=== PATIENT | female | born 1965 | race Caucasian/White ===

== ENCOUNTER 2020-04-27 12:21 | Outpatient (REF) | payer OTHER, SELFPAY | END 2020-04-27 12:22 | disposition home or self-care (01) | LOC: HO.LAB 12:21 | PROVIDERS: Visit Provider Hospitalist | DX: Z20.828 Contact with and (suspected) exposure to other viral communicable diseases (principal) | CPT/HCPCS: U0003 ==

== ENCOUNTER 2021-08-26 08:08 | Outpatient (REF) | payer OTHER, SELFPAY ==
--- NOTE | ~2021-08-26 | MM_ITS ---
EXAMINATION: MM SCREENING DIGITAL BREAST TOMOSYNTHESIS, BILATERAL CLINICAL INFORMATION: Screening. Asymptomatic. The lifetime risk of breast cancer based on the Tyrer-Cuzick Model is 12.3%. COMPARISON: Mammography: January 28, 2018 and studies dating back to February 10, 2014 TECHNIQUE: Digital breast tomosynthesis is performed in both the craniocaudal and mediolateral oblique views along with computer-aided detection (CAD). Synthesized 2D images are generated from the tomosynthesis. FINDINGS: The breasts are almost entirely fatty (ACR BI-RADS breast composition Category a). There are no significant masses, abnormal calcifications, or other abnormalities. Calcifications are again seen within the axillary lymph nodes consistent with pigmented from tattoos. MM/MM tomosynthesis screening BI IMPRESSION: There are no significant changes from prior study. ASSESSMENT: BI-RADS 2: Benign RECOMMENDATION: Routine annual mammography screening. This patient's information was entered into a reminder system with a target due date for their next mammogram.
== END 2021-08-26 08:09 | disposition home or self-care (01) ==
LOC: HO.MAMMO 08:08
PROVIDERS: Visit Provider Pediatrics
DX: Z12.31 Encounter for screening mammogram for malignant neoplasm of breast (principal)
CPT/HCPCS: 77063; 77067

== ENCOUNTER 2022-04-25 16:51 | Outpatient (REF) | payer OTHER, SELFPAY ==
[2022-04-26 13:00] LABS: Influenza A PCR NEGATIVE (Negative); Influenza B PCR NEGATIVE (Negative); Resp Syncy Virus RNA Qual PCR NEGATIVE (Negative); SARS COV2 PCR INHOUSE NEGATIVE (Negative)
== END 2022-04-25 16:52 | disposition home or self-care (01) ==
LOC: HO.LAB 16:51
PROVIDERS: Visit Provider Nurse Practitioner Family
DX: Z20.822 Contact with and (suspected) exposure to COVID-19 (principal)
CPT/HCPCS: 0241U

== ENCOUNTER → 2023-02-17 08:15 | Outpatient (BNV) | payer OTHER, SELFPAY | PROVIDERS: PCP Internal Medicine; Visit Provider Radiology Diagnostic Radiology | DX: Z12.31 Encounter for screening mammogram for malignant neoplasm of breast (principal) | CPT/HCPCS: 77063; 77067 ==

== ENCOUNTER 2023-02-17 08:18 | Outpatient (REF) | payer OTHER, SELFPAY ==
--- NOTE | ~2023-02-17 | MM_ITS ---
EXAMINATION: MM SCREENING DIGITAL BREAST TOMOSYNTHESIS, BILATERAL CLINICAL INFORMATION: Screening. Asymptomatic. COMPARISON: Mammography: This study is compared with prior exams dating back to 2016. TECHNIQUE: Digital breast tomosynthesis is performed in both the craniocaudal and mediolateral oblique views along with computer-aided detection (CAD). Synthesized 2D images are generated from the tomosynthesis. FINDINGS: There are scattered areas of fibroglandular density (ACR BI-RADS breast composition Category b). There are no significant masses, abnormal calcifications, or other abnormalities. MM/MM tomosynthesis screening BI IMPRESSION: No mammographic evidence of malignancy. ASSESSMENT: BI-RADS BI-RADS 1 - Negative RECOMMENDATION: Routine annual mammography screening. 1 year F/U This examination should not preclude the clinical evaluation of a suspicious palpable abnormality. This patient's information was entered into a reminder system with a target due date for their next mammogram.
== END 2023-02-17 08:19 | disposition home or self-care (01) ==
LOC: HO.MAMMO 08:18
PROVIDERS: PCP Internal Medicine; Visit Provider Internal Medicine
DX: Z12.31 Encounter for screening mammogram for malignant neoplasm of breast (principal)
CPT/HCPCS: 77063; 77067

== ENCOUNTER 2024-02-23 08:11 | Outpatient (REF) | payer OTHER, SELFPAY ==
--- NOTE | ~2024-02-23 | MM_ITS ---
EXAMINATION: MM SCREENING DIGITAL BREAST TOMOSYNTHESIS, BILATERAL CLINICAL INFORMATION: Screening. Asymptomatic. COMPARISON: Mammography: Comparison is made with available priors TECHNIQUE: Digital breast mammography with tomosynthesis is performed in both the craniocaudal and mediolateral oblique views along with computer-aided detection (CAD). FINDINGS: There are scattered areas of fibroglandular density (ACR BI-RADS breast composition Category b). There are no significant masses, abnormal calcifications, or other abnormalities. MM/MM tomosynthesis screening BI IMPRESSION: No mammographic evidence of malignancy. ASSESSMENT: BI-RADS BI-RADS 1 - Negative RECOMMENDATION: Routine annual mammography screening. 1 year F/U This examination should not preclude the clinical evaluation of a suspicious palpable abnormality. This patient's information was entered into a reminder system with a target due date for their next mammogram. Electronically signed by: Skye Lund DO 03/07/2024 08:55 AM EDT
== END 2024-02-23 08:12 | disposition home or self-care (01) ==
LOC: HO.MAMMO 08:11
PROVIDERS: PCP Internal Medicine; Visit Provider Internal Medicine
DX: Z12.31 Encounter for screening mammogram for malignant neoplasm of breast (principal)
CPT/HCPCS: 77063; 77067

== ENCOUNTER → 2024-02-23 08:15 | Outpatient (BNV) | payer OTHER, SELFPAY | PROVIDERS: PCP Internal Medicine; Visit Provider Internal Medicine | DX: Z12.31 Encounter for screening mammogram for malignant neoplasm of breast (principal) | CPT/HCPCS: 77063; 77067 ==

== ENCOUNTER 2025-03-28 09:55 | Outpatient (REF) | payer OTHER, SELFPAY ==
--- NOTE | ~2025-03-28 | MM_ITS ---
EXAMINATION: MM SCREENING DIGITAL BREAST TOMOSYNTHESIS, BILATERAL CLINICAL INFORMATION: Screening. Asymptomatic. COMPARISON: Comparison made to multiple prior, most recent February 23, 2024, and most remote February 10, 2014. TECHNIQUE: Digital breast tomosynthesis is performed in mediolateral oblique and craniocaudal views along with computer-aided detection (CAD). Synthesized 2D images are generated from the tomosynthesis. FINDINGS: BREAST COMPOSITION: There are scattered areas of fibroglandular density. BILATERAL BREASTS: No significant masses, suspicious calcifications or other abnormalities are seen in either breast. MM/MM tomosynthesis screening BI IMPRESSION: BILATERAL BREASTS: Negative, no mammographic evidence of malignancy. Normal interval follow-up is recommended in 12 months. ASSESSMENT: BI-RADS: Category 1: Negative RECOMMENDATION: Routine annual mammography screening. FOLLOW-UP: 1 year F/U This examination should not preclude the clinical evaluation of a suspicious palpable abnormality. This patient's information was entered into a reminder system with a target due date for their next mammogram. Electronically signed by: Antionette Silverio MD 03/30/2025 08:15 PM EDT
--- OUTSIDE RECORDS SUMMARY | 2025-03-28 09:58 | XMS_ITS ---
Author Name [facility] Organization Unknown History of Medication Use Medication Directions Dispensed Refills Start Date End Date Stat us benzonatate 100 mg capsule TAKE 1 CAPSULE BY MOUTH 3 TIMES DAILY NEEDED FOR COUGH FOR UP TO 7 DAYS. active diclofenac sodium 50 mg tablet,delayed release TAKE 1 TABLET BY MOUTH TWICE A DAY active fluocinolone acetonide oil 0.01 % ear drops PLACE 2 DROPS IN EAR(S) 2 TIMES DAILY NEEDED (ECZEMA). active fluticasone propionate 50 mcg/actuation nasal spray,suspension SPRAY 1 SPRAY INTO EACH NOSTRIL EVERY DAY active levothyroxine 50 mcg tablet TAKE 1 TABLET BY MOUTH SUNDAY THROUGH SUNDAY AND 1.5 TABLET ON SUNDAY. active meloxicam 7.5 mg tablet TAKE 1 TABLET BY MOUTH EVERY DAY active Allergies Allergen Reaction Severity Comment Documented Date Source Statu s CODEINE ENS_AONECT LATEX, NATURAL RUBBER ENS_AONECT NAPROXEN ENS_AONECT SINGULAIR ENS_AONECT Problems Problem Status Onset Date Problem Type Date of Resoluti on Source Carpal tunnel syndrome of right wrist active 2023-07-25 ProblemAct ENS_AONECT Encounters Encounter Type Encounter Reason Primary Diagnosis Location Date Ambulatory [facility] [place] 07/25/2023 Ambulatory [facility] [place] 06/13/2023 [facility]ulatory [facility] [place] 06/13/2023 [facility]ulatory [facility] [place] 06/13/2023 Ambulatory [facility] [place] 06/01/2023 Ambulatory [facility] [place] 05/24/2023
--- OUTSIDE RECORDS SUMMARY | 2025-03-28 09:58 | XMS_ITS | Data Portability ---
Author Organization [place] [facility] Carmelo EspinosaEpifanioCLAUDY Bonsall Address [address] [facility] [address] [place] [address] Care Team Providers Care Podiatric Physician Name Role Phone DESTINEY MUNGUIA Referring Provider LAUREN HENNING Primary Care Provider DESTINEY MUNGUIA Primary Care Provider Assessment Encounter Date Assessment Date Assessment LastModified by Organization Details LastModified Time 06/13/2023 06/13/2023 The above findin gs were discussed with the patient, carpal tunnel syndrome was discussed. Pathology and expected prognosis were discussed. Treatment options include conservative treatment, splinting, injection, and sometimes surgical carpal tunnel release. We will start with night splinting for a total of 6 weeks. If they is still symptomatic after this trial of night splinting we can discuss further workup with either electrodiagnostic studies or a diagnostic and/or therapeutic cortisone injection. It is important that they wear the splint every night for a total of 6-week even if symptoms improve. All questions were answered today. I will see them back in 6 weeks. No x-rays are needed at the next visit. Not available 06/13/2023 10:23:17 07/25/2023 07/25/2023 She returns to [facility] 6 weeks status post wearing nocturnal brace for her right carpal tunnel syndrome, doing very well with significant improvement. She is happy with her progress. She will continue to wear the brace at night. She will monitor her symptoms, if they become more persistent during the day, she develops more nocturnal symptoms, or develops any weakness in the hand, she will return to see me. I let her know that the neck step would be to do a nerve conduction study. For now she will continue to monitor symptoms, wear the brace and will return to see me as needed. All of her questions were answered, she is in agreement the plan. Not available 07/25/2023 08:50:59 Plan of Treatment Reminders Order Date Submit Date Provider Last Modified By Organization Details Last Modified Time Details Appointments None record ed. Lab None record ed. Referral None record ed. Procedures None record ed. Surgeries None record ed. Imaging XR, wrist, 3 or more view 024 06/13/19 24 lschindela [facility], [address], [facility] [address], [place], [address], 4 12:56:30 Medication Orders None record ed. Patient TargetsNo targets recorded. Patient Instructions Encounter Date Encounter Id Patient Instructions Last Modified By Organization Details Last Modified Time 06/13/2023 [id number] 3 views of the right wrist were ordered and reviewed today, this demonstrates no acute bony abnormality. There is good mineralization of the bones. Not available 06/13/2023 10:23:01 Reason for Referral None Reported. Problems Name Problem SNOMED Code Status Onset Date Resolution Date Notes Provider Name and Address Organization Details Recorded Time Carpal tunnel syndrome of right wrist 592078350250744 Active 2023 Danielle reaves MD [address] [facility] [address], [place], [address] [facility] [place] [facility] 4 08:50:13 Problem Notes None recorded. Medical Equipment None Reported. Allergies Allergen ID Allergen Name Allergen Category Reaction Reaction Severity Criticality Documentation Date Start Date Code Code System Note Provider Name and Address Organization Details Recorded Time 31730 Latex (substanc e) environme nt,medica tion Not available Not available Not available 06/13/2023 99935 8007 SNOMED Maegan Chamberlain null, [place] [facility] 4 08:50:33 67291 Singulair medicatio n Not available Not available Not available 06/13/2023 85574 9 RxNorm Maegan Chamberlain null, [place] [facility], P 4 08:50:48 44885 naproxen medicatio n Not available Not available Not available 06/13/2023 7258 RxNorm Maegan kan, [facility] 08:50:56 63863 codeine medicatio n Not available Not available Not available 06/13/2023 2670 RxNorm Maegan kan, [facility], P 4 08:51:05 Medications Name Sig Start Date Stop Date Status Note LastModified by Organization Details LastModified Time meloxicam 7.5 mg tablet TAKE 1 TABLET BY MOUTH EVERY DAY active Not Available Not Available No t Available benzonatate 100 mg capsule TAKE 1 CAPSULE BY MOUTH 3 TIMES DAILY NEEDED FOR COUGH FOR UP TO 7 DAYS. active Not Available Not Available No t Available levothyroxine 50 mcg tablet TAKE 1 TABLET BY MOUTH SUNDAY THROUGH SUNDAY AND 1.5 TABLET ON SUNDAY. active Not Available Not Available No t Available diclofenac sodium 50 mg tablet,delayed release TAKE 1 TABLET BY MOUTH TWICE A DAY active Not Available Not Available No t Available fluticasone propionate 50 mcg/actuation nasal spray,suspensi on SPRAY 1 SPRAY INTO EACH NOSTRIL EVERY DAY active Not Available Not Available No t Available fluocinolone acetonide oil 0.01 % ear drops PLACE 2 DROPS IN EAR(S) 2 TIMES DAILY NEEDED (ECZEMA). active Not Available Not Available No t Available Vitals Date Recorded Body height Body mass index (BMI) Body weight Provider Name and Address Organization Details Last Updated DateTime 06/13/2023 154.94 cm 30.2 kg/m2 61322.78 g Maegan Chamberlain [facility], P 06/13/2023 08:51:26 Date Recorded Body height Body mass index (BMI) Body weight Provider Name and Address Organization Details Last Updated DateTime 07/25/2023 154.94 cm 30.2 kg/m2 27164.78 brian Chamberlain [facility], P 07/25/2023 08:28:54 Social History None recorded. Functional Status Question Answer Note LastModified by Organizat ion Details LastModified Time How many times per week do you consume alcohol? Less than 1 time per week Information not available 06/13/2023 Do you use any illicit or recreational drugs? No Information not available 06/13/2023 Do you or have you ever used any other forms of tobacco or nicotine? No Information not available 06/13/2023 What is your level of alcohol consumption? Occasional Information not available 06/13/2023 Mental Status None recorded. Family History Relationship Description Onset Age of this Age Resolved Age Notes LastModified by Organization Details LastModified Time Father No current problems or disability Not available 08/2023 08:52:47 Mother No current problems or disability Not available 08/2023 08:52:47 Medical History Condition Response Coronary Artery Disease N Gout N Hyperthyroidism N MRSA N Blood Transfusion N Emphysema N Hypothyroidism N COPD N Depression N Pacemaker N Vascular Disease N Gastrointestinal Disease N Anxiety Disorder N Autoimmune disease N Arthritis N Cancer N Stroke N High Cholesterol N Neurologic Disorder N Liver Disease N Organ Transplant N Arrhythmia N Rheumatoid Arthritis N Fibromyalgia N Kidney Disease N Allergies/Hayfever N Adverse Reaction to Anesthesia N Thyroid Problems N Anemia N Brain Injury N Heart Attack (NM) N Osteopenia N Diabetes N Bleeding Disorder N Seizures/Epilepsy N AIDS/HIV N Congestive Heart Failure (CHF) N Asthma Y Amputation N Reflux/GERD N Sleep Apnea N Hepatitis N Aneurysm N Heart Disease N Pulmonary Embolism N Hypertension N Osteoporosis N Gynecological HistoryNo gynecological history recorded. Obstetrics History GPAL:G 0 P 0 0 0 0 Past Encounters Encounter ID Performer Location Encounter Start Date Encounter Closed Date Diagnosis/Indication Diagnosis SNOMED-CT Code Diagnosis ICD10 Code Diagnosis IMO Codes Diagnosis Note [id number] MD CLAUDY Mulligan [address] [place] [address] 06/13/2023 08:37:30 06/13/2023 09:28:49 Pain of right wrist 8752485668 17769 M25.531 [id number] MD CLAUDY Mulligan [facility] [address] [facility] [address] [place] [address] 07/25/2023 08:12:19 07/25/2023 09:03:11 Carpal tunnel syndrome of right wrist [id number] 50198 G56.01 Health Concerns Section Related Observation LastModified by Organization Detai ls LastModified Time None Recorded Concern Status LastModified by Organization Details LastModified Time None Recorded Advance Directives Directive None Recorded Payers Insurance Date Sequence Insurance Name Policy Number Policy Michel Covered Member ID Michel Member ID Guarantor Name 07/22/2023 1 [facility] (HMO) [id number] Kali Reyes [id number] Palak Reyes 06/13/2023 2 [facility] - MEDICARE ADVANTAGE PLAN (MEDICARE REPLACEMENT HMO) Palak Reyes [id number] Palak Reyes Notes Date Note Type Note Provider Name and Address Organization Details Recorded Time 06/13/2023 text/html ROS as noted in the HPI This is a 57-year-old [id number] female who is presenting with right hand numbness and tingling for the last 2 months. This started acutely she denies any history of trauma or change in activity at that time. She describes numbness and tingling in the thumb, index, middle fingers which is prominent at night and wakes her up at night but also happens during the day. This is intermittent in nature. She denies any weakness. Denies any symptoms in her small finger or her left side. She obtained a splint about 2 weeks ago which she has been wearing at night and she says this is significantly helping her nighttime symptoms. She does note daytime symptoms still occasionally. 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 Danielle Rodgers MD [address], [address], [place] [facility] 06/13/2023 10:23:32 07/25/2023 text/html ROS as noted in the HPI She follows up for her right hand carpal tunnel syndrome. She bought a brace on [employer] which she has been wearing nightly and she said this has helped her symptoms significantly. She denies any nocturnal symptoms anymore. Denies constant symptoms during the day, intermittently she will get some numbness which is very transient and goes away. This does not bother her at all. Denies any numbness or tingling today. No weakness in the hand. Danielle Rodgers MD [address] [facility] [address], [place], [address], [place] [facility] 07/25/2023 09:04:28 OBGyn Episode No OBEpisode recorded.
--- OUTSIDE RECORDS SUMMARY | 2025-03-28 09:58 | XMS_ITS | Clinical Summary ---
Author Organization [facility] [address] [place] [address] [place] [id number] Phone Care Team Providers Care Auditing Specialist Name Role Phone Sofia Vargas MD Primary Care Provider [phone] Allergies Active Allergy Reactions Criticality Noted Date Comments Codeine Nausea And Vomiting 05/26/2009 Latex Itching 03/20/2009 Montelukast Nausea And Vomiting 03/20/2009 Naproxen 03/20/2009 Other Reaction(s): OTHER FELT LIKE BLADDER INFECTION Medications medical marijuana [employer] med 1/2 gummies nightly Active fluocinolone acetonide oiL 0.01 % drops Place 2 Drops in ear(s) 2 times daily as needed (eczema). 2 Active fluticasone propionate (FLONASE) 50 mcg/actuation nasal spray Administer 1 spray into each nostril 1 (one) time each day. Active estradiol-noret hindrone (ACTIVELLA) 1-0.5 mg per tablet Take 1 tablet by mouth 1 (one) time each day. 5 Active folic acid (FOLVITE) 1 mg tablet Take 1 tablet (1,000 mcg total) by mouth 1 (one) time each day. 5 Active methotrexate 2.5 mg tablet Take 6 tablets (15 mg total) by mouth 1 (one) time per week 5 Active levothyroxine (SYNTHROID, LEVOTHROID) 50 mcg tablet TAKE 1 TABLET BY MOUTH SUNDAY THROUGH SUNDAY AND 1&1/2 TABLET ON SUNDAY. 135 tablet 1 5 Active Active Problems Problem Noted Date Diagnosed Date Arthritis 05/05/2024 Overview (05/05/2024): left knee, right hand Lui's thyroiditis 09/08/2021 Assessment & Plan (11/25/2024 9:52 AM EDT): Orders: Thyroid stimulating hormone with reflex to free t4 and free t3; Future Osteoarthritis of left knee 01/27/2020 Overview (05/05/2024): Mild on left Psoriasis 08/22/2017 Psoriatic arthropathy ([facility] V24, [facility] V28) 08/22/2017 Overview (05/05/2024): pauciarticular arthritis, hx of iritis and psoriasis Varicose vein of leg 05/26/2009 Immunizations Immunization Administration Dates Next Due DTP 12/03/1967, 8,03/18/1967,1966 Influenza Quadravalent, MDCK , 0.5ml, preservative free (Flucelvax) 6mo and older 04/05/2023 Influenza trivalent, 0.5mL, preservative free (Fluarix; FluLaval; Fluzone) ages 6mo and older (Afluria) 3 years and older 03/24/2024,04/21/2021,03/31/2020,2017,04/08/2017,04/23/2015,04/07/2014 Measles 10/28/1976,10/24/1967 Moderna SARS-CoV-2 COVID-19, mRNA, LNP-S, preservative free 05/20/2021 Mumps 10/12/1969 OPV 03/17/1973, 8,06/22/1967,1966,03/19/1967 Rubella 08/09/1970 Smallpox 07/14/1968 Td Tetanus diptheria (Tdvax) 7yo and older 10/11/1991,11/13/1983,03/17/1973 Tdap Tetanus diptheria acell ular pertussis (Boostrix; Adacel) 7yo and older 09/06/2021,05/07/2010 Zoster recombinant (Shingrix ) 19yo and older 12/09/2021,09/10/2021 Surgical History Surgery Date Site/Laterality Comments WISDOM TOOTH EXTRACTION PROCEDURE: HISTORICAL WISDOM TEETH EXTRACTION SECTION PROCEDURE: HISTORICAL ; COMMENT: x1 COLONOSCOPY 03/22/2018 PROCEDURE: HISTORICAL COLONOSCOPY; COMMENT: normal; repeat in 10 yrs Medical History Medical History Date Comments Eczema DX:Eczema Iritis DX:Iritis; COMME NT: in her teens Shingles DX:Shingles; COM MENT: early 30's Arthritis DX:Arthritis; CO MMENT: left knee, right hand Seasonal allergies DX:Seasonal a llergies Varicose veins DX:Varicose vein s Psoriatic arthropathy (CMS/H CC V24, CMS/HCC V28) 08/22/2017 DX:Psoriatic arthropathy (HC C); COMMENT: pauciarticular arthritis, hx of iritis and psoriasis Osteoarthritis of left knee 01/27/2020 DX:O steoarthritis of left knee; COMMENT: Mild on left Hypothyroid DX:Hypothyroid Family History Medical History Relation Name Comments Other: gout Brother 1 Moshe Other: ulcerative colitis Brother 1 Moshe Lung cancer Father Prostate cancer Father Arthritis Mother Arthritis Sister Kathleen Stroke Sister Kathleen gm; coag d.o. Relation Name Status Comments Brother 1 Moshe Alive Brother 2 Tan Alive Brother 3 Raman Alive Father lung cancer; pr ostate cancer doing well; 73 in 2017 Maternal Grandfather (Age 91yrs) heart - lung cancer, smoker Maternal Grandmother (Age 88yrs) dementia Mother Alive htn; 72 in 2017 Paternal Grandfather (Age 50's) lung cancer Paternal Grandmother (Age 80yrs) diabetic Sister Kathleen Alive well Son Alive David 07/2009 Social History Tobacco Use Types Packs/Day Years Used Date Smoking Tobacco: Former Cigarettes 0.2 5 Q uit: 11/25/2004 Smokeless Tobacco: Former Tobacco Cessation:Counseling Given: Not Answered Alcohol Use Standard Drinks/Week Comments Yes 3 (1 standard drink = 0.6 oz pur e alcohol) Housing Instability Answer Date Recorde d Are you worried that in the next 2 months you may not have stable housing? No 11/25/2024 Food Access & Nutrition Answer Date Rec orded Do you have access to a vari ety of food including fruits and vegetables? No 11/25/2024 Health Literacy Answer Date Recorded How often do you need to hav e someone help you when you read instructions, pamphlets, or other written material from your doctor or pharmacy? Never 11/25/2024 Caregiver: How often do you need to have someone help you when you read instructions, pamphlets, or other written material from your doctor or pharmacy? Not on file 11/25/2024 Financial Risk Answer Date Recorded How hard is it for you to pa y for the very basics like food, housing, medical care, and air conditioning / heating? Not very hard 11/25/2024 Transportation Answer Date Recorded Has the lack of transportati on kept you from meetings, work, or from getting things needed for daily living? No Has the lack of transportati on kept you from medical appointments or from getting medications? No 11/25/2024 Social Isolation Answer Date Recorded How often do you feel lonely or isolated from th ose around you? Never 11/25/2024 Food Risk Answer Date Recorded Within the past 12 months we worried whether our food would run out before we got money to buy more. Never true 11/25/2024 Within the past 12 months th e food we bought just didn't last and we didn't have money to get more. Never true 11/25/2024 Dependent Care Answer Date Recorded Do you need help finding or paying for care for your loved ones. For example, child life therapist or elderly care for an older adult? No 11/25/2024 Education Answer Date Recorded Do you think completing more education or training, like finishing a GED, going to college, or learning a trade, would be helpful for you? No 11/25/2024 Employment and Income Answer Date Recor ded During the last four weeks, have you been actively looking for work? No 11/25/2024 Living Situation Answer Date Recorded What is your living situation? Unrecognized valu e 11/25/2024 Comments No Sex and Gender Information Value Date Recorded Sex Assigned at Not on file Legal Sex Female 9:58 AM EST Gender Identity Not on file Sexual Orientation Not on file Obstetrics History Last Filed Vital Signs Vital Sign Reading Time Taken Comments Blood Pressure 124/72 11/25/2024 9:23 AM EDT Pulse 72 11/25/2024 9:23 AM EDT Temperature 36.6 C (97.8 F) 11/25/2024 9:23 AM EDT Respiratory Rate 14 11/25/2024 9:23 AM EDT Oxygen Saturation 98% 11/25/2024 9:23 AM EDT Inhaled Oxygen Concentration - - Weight 74.8 kg (165 lb) 11/25/2024 9:23 AM EDT Height 154.9 cm (5' 1 ) 11/25/2024 9:23 AM EDT Body Mass Index 31.18 11/25/2024 9:23 AM EDT Plan of Treatment Health Maintenance Due Date Last Done Comments Hepatitis B Vaccines (1 of 3 - 19+ 3-dose series) 1985 Pneumococcal Vaccine: 50+ Years (1 of 1 - PCV) 2016 RSV Immunization Adult Patients (1 - Risk 50-74 years 1-dose series) 2016 HIV Screening 05/09/2022 COVID-19 Vaccine ( season) 2025 06/17/2022, 05/20/2021, 09/18/2020, Additional history exists Influenza Vaccine (#1) 2025 , 04/05/2023, 04/21/2021, Additional history exists Breast Cancer Screening 02/22/2025 02/23/2024, 02/22 Social Influencers of Health Screening 11/25/2025 11/25/2024 Cervical Cancer Screening: HPV 01/25/2026 01/25/2021 Colorectal Cancer Screening: Colonoscopy 03/22/2028 03/22/2018, 03/22/2018 Cholesterol Screening (Lipid Panel) 12/08/2029 12/08/2024, 09/25/2022 DTaP,Tdap,and Td Vaccines (10 - Td or Tdap) 09/07/2031 09/06/2021, 05/07/2010, 10/11/1991, Additional history exists IPV Vaccines Completed 03/17/1973, 11/10, 06/22/1967, Additional history exists Hepatitis C Screening Completed 09/06/2021 Zoster Vaccines Completed 12/09/2021, 09/10/2021 Depression Screening Completed 11/25/2024 HIB Vaccines Aged Out No longer eligi ble based on patient's age to complete this topic HPV Vaccines Aged Out No longer eligi ble based on patient's age to complete this topic Hepatitis A Vaccines Aged Out No long er eligible based on patient's age to complete this topic MMR Vaccines Aged Out No longer eligi ble based on patient's age to complete this topic Meningococcal ACWY Vaccine Aged Out N o longer eligible based on patient's age to complete this topic Meningococcal B Vaccine Aged Out No l onger eligible based on patient's age to complete this topic RSV Immunization Patients Under 20 months Aged Out No longer eligible based on patient's age to complete this topic Varicella Vaccines Aged Out No longer eligible based on patient's age to complete this topic Procedures Procedure Name Priority Date/Time Associated Diagnosis Comments LIPID PANEL WITH REFLEX TO DIRECT LDL Routine 12/08/2024 8:29 AM EDT PE (physical exam), annual MAMMO DIGITAL DIAGNOSTIC BILAT Routine 02/23/2024 10:08 AM EDT HEPATITIS C SCREENING Routine 09/06/2021 COLONOSCOPY Routine 03/22/2018 from Last 3 Months or Most Recently Relevant to Health Maintenance Results * (ABNORMAL) Lipid panel with reflex to direct LDL (12/08/2024 8:29 AM EDT) Cholesterol 178 0 - 200 mg/dL LAB CHEMISTRY METHOD 12/08/2024 10:49 AM EDT [facility] Triglycerides 71 0 - 150 mg/dL LAB CHEMISTRY METHOD 12/08/2024 10:49 AM EDT [facility] HDL 54 >=40 mg/dL LAB CHEMISTRY METHOD 12/08/2024 10:49 AM EDT [facility] LDL Calculated 110(H) 0 - 100 mg/dL LAB CHEMISTRY METHOD 12/08/2024 10:49 AM [facility] VLDL Cholesterol Francisco 14.2 mg/dL LAB CHEMISTRY METHOD 12/08/2024 10:49 AM EDT [facility] Non HDL Chol. (LDL+VLDL) 124 <145 mg/dL LAB CHEMISTRY METHOD 12/08/2024 10:49 AM EDT [facility] Chol/HDL Ratio 3.3 0.0 - 4.4 LAB CHEMISTRY METHOD 12/08/2024 10:49 AM EDT [facility] Blood Venous blood specimen / Unknown Venipuncture / Unknown 12/08/2024 8:29 AM EDT 12/08/2024 8:29 AM EDT Sofia Vargas MD LAB BLOOD ORDERABLES Final Resul t [facility] ([facility]) [facility] [address] [place] [address], [place] [phone] * MG Mammo Digital Diagnostic bilat (02/23/2024 10:08 AM EDT) Anatomical Region Laterality Modality Breast Bilateral Mammography Historical Provider IMG BI PROCEDURES Final R esult * Hepatitis C Screening (09/06/2021) Pathologist [facility] Hepatitis C Screening abstracted Historical Provider HEALTH MAINTENANCE Final Result * Colonoscopy (03/22/2018) Colonoscopy no interpretation , abstracted Anatomical Region Laterality Modality Other Historical Provider HEALTH MAINTENANCE Final Result from Last 3 Months or Most Recently Relevant to Health Maintenance Insurance [facility] [address] [place] [phone] Care Teams Auditing Specialist Relationship Specialty Start Date End Date Sofia Vargas MD [address] [place] [phone] PCP - General Internal Medicine 05/22/24
== END 2025-03-28 09:56 | disposition home or self-care (01) ==
LOC: HO.MAMMO 09:55
PROVIDERS: PCP Internal Medicine; Visit Provider Internal Medicine
DX: Z12.31 Encounter for screening mammogram for malignant neoplasm of breast (principal)
CPT/HCPCS: 77063; 77067

== ENCOUNTER → 2025-03-28 10:30 | Outpatient (BNV) | payer OTHER, SELFPAY | PROVIDERS: PCP Internal Medicine; Visit Provider Radiology Body Imaging | DX: Z12.31 Encounter for screening mammogram for malignant neoplasm of breast (principal) | CPT/HCPCS: 77063; 77067 ==